=== PATIENT | female | born 1985 | race Caucasian/White ===

== ENCOUNTER 2017-04-05 23:11 | Emergency (ER) | payer MEDICAID ==
[~2017-04-05] VITALS: Ht 167.6 cm; Wt 54.4 kg
[2017-04-05] MEDS ORDERED: IV NORMAL SALINE 1000 ML BAG IV ONE (23:15)
[2017-04-05] MEDS ORDERED: ONDANSETRON 4 MG/2 ML VIAL IV ONE (23:15)
--- NOTE | 2017-04-05 23:20 | NUR ---
TO ROOM 1B FOR ER EVAL
[2017-04-05] MEDS ORDERED: ONDANSETRON 4 MG/2 ML VIAL ONE (23:47)
--- NOTE | 2017-04-06 00:05 | NUR ---
PT RESTING FRIEND AT BEDSIDE
[2017-04-06] MEDS ORDERED: ONDANSETRON IV *ER 4 MG/2 ML VIAL IV ONE (00:45)
--- NOTE | 2017-04-06 00:50 | NUR ---
PT STARTING TO BE MORE AWAKE MOANING FRIEND AT BEDSIDE BP136/58 P90 R 20
--- NOTE | 2017-04-06 01:10 | NUR ---
NS completed, pt is awake and requested bedpan. Friend at the bedside.
--- NOTE | 2017-04-06 02:20 | NUR ---
Pt is discharged however trying to contact her ride and requested if she can stay till her ride comes, consulted with Dr. Handley.
--- NOTE | 2017-04-06 03:00 | NUR ---
Remained asleep, VS stable
[2017-04-06] MEDS ORDERED: ONDANSETRON 4 MG/2 ML VIAL ONE (05:54)
[2017-04-06] MEDS ORDERED: PROMETHAZINE HCL 25 MG/1 ML VIAL ONE (06:00)
[2017-04-06] MEDS ORDERED: METOCLOPRAMIDE HCL 10 MG/2 ML VIAL IM ONE (06:00)
--- NOTE | 2017-04-06 06:00 | NUR ---
Given reglan 10mg/IM at left deltoid for nausea. Accompanied to restroom, felt a little bit better as stated. Pt's cousin picked her up. IV line discontinued applied pressure and secured with cotton and tape. Patient discharged to home in stable conditon. Written and verbal after care instructions given. Patient verbalizes understanding of instructions.
[2017-04-06 06:16] VITALS: BP 120/74
== END 2017-04-06 06:20 | disposition home or self-care (01) ==
LOC: ER 23:12
DX: F10.129 Alcohol abuse with intoxication, unspecified (principal)
CPT/HCPCS: 96361; 96372; 96374; 96376; 99285; A4663; J2405 ×2; J2550; J7030